=== PATIENT | male | born 1965 ===

== ENCOUNTER 2020-10-16 20:07 | Emergency (ER) | payer OTHER ==
[~2020-10-16] VITALS: Ht 167.6 cm; Wt 65.0 kg
[2020-10-16] MEDS ORDERED: LISINOPRIL 20 MG TABLET ONE (20:17)
--- NOTE | 2020-10-16 20:21 | NUR ---
Pt here with law enforcement requiring med clear for [facility]. Pt in NAD, cuffed to [facility] under law enforcement. Medicated per order, waiting for [id number] b/p and dispo. Will continue to monitor.
[2020-10-16] MEDS ORDERED: PLEASE ENTER ALLERGIES MC SCH (20:30)
[2020-10-16] MEDS ORDERED: LISINOPRIL 20 MG TABLET PO ONE (20:30)
[2020-10-16 21:11] LABS: BASOPHILS % (AUTO) 1 % (0-1); EOSINOPHILS % (AUTO) 1 % (1-7); LYMPHOCYTES % (AUTO) 19 % (22-44); MEAN CORPUSCULAR HEMOGLOBIN 33.1 pg (27.5-34.5); MEAN CORPUSCULAR HGB CONC 35.2 g/dL (33.2-36.2); MEAN PLATELET VOLUME 7.6 fL (7.4-10.4); MONOCYTES % (AUTO) 8 % (2-9); NEUTROPHILS % (AUTO) 72 % (42-75); PLATELET COUNT 312 x10^3/uL (130-400); RED BLOOD COUNT 4.96 x10^6/uL (4.38-5.82); RED CELL DISTRIBUTION WIDTH 12.9 % (9.4-14.8)
[2020-10-16 21:15] LABS: MD NO
[2020-10-16 21:16] LABS: ALBUMIN 3.6 g/dL (3.4-5.0); ANION GAP 7 mmol/L (5-15); CHLORIDE 107 mmol/L (98-107)
[2020-10-16 21:26] VITALS: BP 137/66
--- NOTE | 2020-10-16 21:28 | NUR ---
B/p stabilized. Waiting for labs, ERP re-eval.
== END 2020-10-16 22:25 | disposition home or self-care (01) ==
LOC: ED 21:00
DX: I10 Essential (primary) hypertension (principal); R07.89 Other chest pain
CPT/HCPCS: 36415; 80048; 82040; 85025; 93005; 99284